=== PATIENT | male | born 1935 | race Caucasian/White ===

== ENCOUNTER 2019-11-02 12:16 | Outpatient (CLI) | payer MEDICARE ==
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
== END 2019-11-02 12:17 | disposition home or self-care (01) ==
LOC: SCSRAD 12:16
PROVIDERS: ATTEND Neurological Surgery
DX: M54.2 Cervicalgia (principal); M47.812 Spondylosis without myelopathy or radiculopathy, cervical region
CPT/HCPCS: 72040